=== PATIENT | female | born 1970 | race Caucasian/White ===

== ENCOUNTER → 2018-08-01 | Outpatient (CLI) | payer OTHER ==
[2018-08-01 08:38] LABS: ABSOLUTE EOSINOPHILS 0.1 thou/uL (0.0-0.7); ABSOLUTE LYMPHOCYTES 2.9 thou/uL (0.8-5.3); ABSOLUTE MONOCYTES 0.7 thou/uL (0.0-1.2); ABSOLUTE NEUTROPHILS 6.6 thou/uL (1.6-8.1); BASOPHILS 0.4 %; EOSINOPHILS 1.1 %; HEMATOCRIT 42.7 % (37.0-47.0); HEMOGLOBIN 13.8 gm/dL (12.0-15.0); LYMPHOCYTES 27.9 %; MCHC 32.3 g/dL (28.0-37.0); MCV 86.7 fL (80.0-100.0); MONOCYTES 6.9 %; MPV 8.8 fl. (7.2-11.1); NUCLEATED RBCS 0 /100WBC; PLATELET COUNT* 344 thou/uL (150-400); POLYS 63.7 %; RBC 4.92 mil/uL (4.20-5.00); RDW-CV 13.2 % (10.5-14.5); WBC 10.4 thou/uL (4.0-11.0)
[2018-08-01 08:47] LABS: ALBUMIN 3.4 g/dL (3.4-5.0); ALKALINE PHOSPHATASE 72 U/L (46-116); ANION GAP 9 mmol/L (7-16); BUN 16 mg/dL (7-18); CALCIUM 9.2 mg/dL (8.5-10.1); CHLORIDE 101 mmol/L (98-107); CHOLESTEROL 173 mg/dL (<200); CO2 29 mmol/L (21-32); GLUCOSE 109 mg/dL (70-99); HDL CHOLESTEROL 46 mg/dL (>40); LDL CHOLESTEROL 106 mg/dL (<100); POTASSIUM 3.9 mmol/L (3.5-5.1); SGOT 19 U/L (15-37); SGPT 41 U/L (30-65); SODIUM 139 mmol/L (136-145); TC:HDL 3.8 Ratio (Not establshd); TOTAL BILIRUBIN 0.6 mg/dL (<0.1-1.0); TRIGLYCERIDE 107 mg/dL (<150); VLDL 21 mg/dL (<40)
[2018-08-01 08:49] LABS: SERUM ASSESSMENT Clear
== END ==
LOC: M.LAB 04:11
PROVIDERS: Family Medicine
DX: I10 Essential (primary) hypertension (principal); M77.12 Lateral epicondylitis, left elbow; K21.9 Gastro-esophageal reflux disease without esophagitis; F41.9 Anxiety disorder, unspecified; F32.9 Major depressive disorder, single episode, unspecified

== ENCOUNTER → 2018-08-14 | Outpatient (CLI) | payer OTHER ==
--- NOTE | 2018-08-21 07:10 | SLEEP ---
[facility] [address] [place] [address] SLEEP STUDY REPORT Name: ALBAI LOGAN Room: [facility] Lloyd#: [id number] Admission: 08/14/18 Attend Phys: Guera Thornton Discharge: Date of : 70 Report #: [id number] THIS REPORT FOR: //name// CC: Beny Quezada This study has been reviewed in its entirety by a board certified sleep specialist DATE OF SERVICE: 08/16/2018 The patient is a 47-year-old who weighs 356 pounds with a BMI of 61.1. The patient underwent home sleep study performed at [facility]. Total recording time was 305 minutes. During the night study, the patient had 54 obstructive apneas, no central or mixed apneas and 162 hypopneas. The patient's apnea hypopnea index was 42.5 per hour and a supine index of 42.5 per hour as well. Oximetry study revealed an average oxygen saturation of 86% with a lowest of 53%, 241 minutes were spent in oxygen saturation less than 90% and another 86 minutes with saturation of less than 85% and another 35 minutes with saturation less than 80%. Mean heart rate was 97 beats per minute with a maximum of 116 beats per minute. IMPRESSION: 1. Severe sleep apnea-hypopnea syndrome with an AHI of 52.5 per hour. 2. Moderate to severe nocturnal hypoxia secondary to obstructive sleep apnea. RECOMMENDATIONS: 1. The patient should return to the sleep lab for in-lab titration study. 2. Once optimum CPAP pressure is achieved, then follow up in 4-6 weeks to assess compliance with CPAP and to document clinical improvement. 3. Weight loss is strongly advised. 4. Avoid [employer] depressants. 5. Cautioned regarding driving until symptoms of sleep apnea resolve with the use of CPAP. <ELECTRONICALLY SIGNED> By: Chuy Beatty MD 08/21/18 0710 [id number] [id number] Beatty MD /nt
== END ==
LOC: M.SLEEPLAB 07:00
DX: G47.33 Obstructive sleep apnea (adult) (pediatric) (principal); G47.34 Idiopathic sleep related nonobstructive alveolar hypoventilation; G47.8 Other sleep disorders; I10 Essential (primary) hypertension; F32.9 Major depressive disorder, single episode, unspecified; Z82.49 Family history of ischemic heart disease and other diseases of the circulatory system; Z80.0 Family history of malignant neoplasm of digestive organs; Z91.040 Latex allergy status

== ENCOUNTER → 2019-01-04 | Outpatient (CLI) | payer OTHER ==
[2019-01-04 10:18] LABS: ABSOLUTE BASOPHILS 0.1 thou/uL (0.0-0.2); ABSOLUTE EOSINOPHILS 0.1 thou/uL (0.0-0.7); ABSOLUTE LYMPHOCYTES 1.9 thou/uL (0.8-5.3); ABSOLUTE MONOCYTES 0.4 thou/uL (0.0-1.2); ABSOLUTE NEUTROPHILS 4.4 thou/uL (1.6-8.1); BASOPHILS 0.9 %; HEMATOCRIT 42.8 % (37.0-47.0); HEMOGLOBIN 14.2 gm/dL (12.0-15.0); MCH 28.9 pg (26.0-34.0); MCV 87.5 fL (80.0-100.0); MONOCYTES 5.5 %; MPV 8.8 fl. (7.2-11.1); NUCLEATED RBCS 0 /100WBC; PLATELET COUNT* 313 thou/uL (150-400); POLYS 63.6 %; RBC 4.89 mil/uL (4.20-5.00); RDW-CV 13.1 % (10.5-14.5); WBC 6.9 thou/uL (4.0-11.0)
[2019-01-04 10:29] LABS: ALBUMIN 3.2 g/dL (3.4-5.0); ALKALINE PHOSPHATASE 77 U/L (46-116); ANION GAP 5 mmol/L (7-16); BUN 14 mg/dL (7-18); CHLORIDE 104 mmol/L (98-107); CHOLESTEROL 181 mg/dL (<200); CO2 31 mmol/L (21-32); CREATININE 0.8 mg/dL (0.6-1.3); GLUCOSE 99 mg/dL (70-99); HDL CHOLESTEROL 41 mg/dL (>40); LDL CHOLESTEROL 114 mg/dL (<100); POTASSIUM 4.1 mmol/L (3.5-5.1); SERUM ASSESSMENT Clear; SGOT 23 U/L (15-37); SGPT 50 U/L (30-65); SODIUM 140 mmol/L (136-145); TC:HDL 4.4 Ratio (Not establshd); TOTAL BILIRUBIN 0.6 mg/dL (<0.1-1.0); TOTAL PROTEIN 7.6 g/dL (6.4-8.2); TRIGLYCERIDE 132 mg/dL (<150); VLDL 26 mg/dL (<40)
[2019-01-05 02:06] LABS: GLYCOHEMOGLOBIN (HGB A1C) 5.7 % (4.8-5.6)
== END ==
LOC: M.LAB 09:48
PROVIDERS: Family Medicine
DX: G47.30 Sleep apnea, unspecified (principal); I10 Essential (primary) hypertension; G47.8 Other sleep disorders; R73.9 Hyperglycemia, unspecified

== ENCOUNTER 2019-02-27 02:55 | Emergency (ER) | payer OTHER ==
[~2019-02-27] VITALS: Ht 162.6 cm; Wt 163.3 kg
[2019-02-27] MEDS ORDERED: CELEXA 20 MG TA20 MG PO (03:15)
[2019-02-27] MEDS ORDERED: LISINOPRIL (03:15)
[2019-02-27 03:55] VITALS: BP 138/90
== END 2019-02-27 03:55 | disposition home or self-care (01) ==
LOC: M.ERS 02:55
DX: S93.492A Sprain of other ligament of left ankle, initial encounter (principal); Z91.040 Latex allergy status; W01.0XXA Fall on same level from slipping, tripping and stumbling without subsequent striking against object, initial encounter; Y93.89 Activity, other specified; Y92.89 Other specified places as the place of occurrence of the external cause; Y99.8 Other external cause status

== ENCOUNTER → 2019-08-25 | Outpatient (CLI) | payer OTHER ==
[~2019-08-25] MED LIST: CELEXA 20 MG TA20 MG PO; LISINOPRIL
[2019-08-25 12:33] LABS: ABSOLUTE BASOPHILS 0.1 thou/uL (0.0-0.2); ABSOLUTE EOSINOPHILS 0.2 thou/uL (0.0-0.7); ABSOLUTE LYMPHOCYTES 2.8 thou/uL (0.8-5.3); ABSOLUTE MONOCYTES 0.5 thou/uL (0.0-1.2); ABSOLUTE NEUTROPHILS 5.1 thou/uL (1.6-8.1); BASOPHILS 1.1 %; HEMATOCRIT 42.5 % (37.0-47.0); HEMOGLOBIN 14.1 gm/dL (12.0-15.0); LYMPHOCYTES 31.9 %; MCH 28.6 pg (26.0-34.0); MCHC 33.2 g/dL (28.0-37.0); MCV 86.3 fL (80.0-100.0); MONOCYTES 5.8 %; MPV 8.6 fl. (7.2-11.1); NUCLEATED RBCS 0 /100WBC; PLATELET COUNT* 332 thou/uL (150-400); POLYS 59.2 %; RBC 4.92 mil/uL (4.20-5.00); RDW-CV 13.7 % (10.5-14.5); WBC 8.7 thou/uL (4.0-11.0)
[2019-08-25 12:47] LABS: ALBUMIN 3.5 g/dL (3.4-5.0); ALKALINE PHOSPHATASE 86 U/L (46-116); ANION GAP 6 mmol/L (7-16); BUN 11 mg/dL (7-18); CALCIUM 9.2 mg/dL (8.5-10.1); CHLORIDE 102 mmol/L (98-107); CHOLESTEROL 154 mg/dL (<200); CO2 31 mmol/L (21-32); CREATININE 1.1 mg/dL (0.6-1.3); GLUCOSE 95 mg/dL (70-99); HDL CHOLESTEROL 44 mg/dL (>40); LDL CHOLESTEROL 85 mg/dL (<100); POTASSIUM 4.1 mmol/L (3.5-5.1); SGOT 25 U/L (15-37); SGPT 37 U/L (30-65); SODIUM 139 mmol/L (136-145); TC:HDL 3.5 Ratio (Not establshd); TOTAL BILIRUBIN 0.6 mg/dL (<0.1-1.0); TOTAL PROTEIN 8.1 g/dL (6.4-8.2); TRIGLYCERIDE 127 mg/dL (<150); VLDL 25 mg/dL (<40)
[2019-08-25 12:48] LABS: SERUM ASSESSMENT Clear
[2019-08-26 02:07] LABS: GLYCOHEMOGLOBIN (HGB A1C) 5.6 % (4.8-5.6)
== END ==
LOC: M.LAB 12:10
PROVIDERS: Family Medicine
DX: I10 Essential (primary) hypertension (principal); F41.9 Anxiety disorder, unspecified; F32.9 Major depressive disorder, single episode, unspecified

== ENCOUNTER → 2019-08-30 | Outpatient (CLI) | payer OTHER ==
--- NOTE | 2019-08-30 09:59 | 2DMMODE ---
[place] [address] 2 D/M-MODE ECHOCARDIOGRAM Name: CHI CARROLL Room: [facility]#: [id number] Admission: 08/30/19 Attend Phys: Merrick Casillas MD Discharge: Date of : 70 Date of Service: 08/30/19 0957 Report #: [id number] THIS REPORT FOR: cc: Beny Quezada,Mario Reese MD [facility] ~ APPROVED REPORT Study performed: 08/30/2019 08:06:47 EXAM: Comprehensive 2D, Doppler, and color-flow Echocardiogram Patient Location: Out-Patient BSA: 2.53 HR: 98 bpm BP: 130/80 mmHg Other Information Study Quality: Fair Indications Palpitations 2D Dimensions IVSd: 11.21 (7-11mm) LVOT Diam: 20.38 (18-24mm) LVDd: 45.99 mm PWd: 10.92 (7-11mm) Ascending Ao: 33.42 (22-36mm) LVDs: 28.25 (25-40mm) Aortic Root: 25.85 mm Volumes Left Atrial Volume (Systole) LA ESV Index: 8.70 mL/m2 Aortic Valve AoV Peak Luis.: 1.26 m/s AO Peak Gr.: 6.34 mmHg LVOT Max P.46 mmHg AO Mean Gr.: 3.87 mmHg LVOT Mean P.71 mmHg LVOT Max V: 0.93 m/s AO V2 VTI: 21.57 cm LVOT Mean V: 0.60 m/s SCOTU (VTI): 2.46 cm2 LVOT V1 VTI: 16.26 cm Mitral Valve E/A Ratio: 0.92 [place] [address] 2 D/M-MODE ECHOCARDIOGRAM Name: GLENCHI Room: [facility]#: [id number] Admission: 08/30/19 Attend Phys: Merrick Casillas MD Discharge: Date of : 70 Date of Service: 08/30/19 0957 Report #: [id number] MV Decel. Time: 223.77 ms MV E Max Luis.: 0.63 m/s MV PHT: 64.89 ms MVA (PHT): 3.39 cm2 TDI E/Lateral E': 4.50 E/Medial E': 7.00 Medial E' Luis.: 0.09 m/s Lateral E' Luis.: 0.14 m/s Pulmonary Valve PV Peak Luis.: 0.82 m/s PV Peak Gr.: 2.68 mmHg Left Ventricle The left ventricle is normal size. There is normal LV segmental wall motion. There is normal left ventricular wall thickness. Left ventricular systolic function is normal. LVEF is 60-65%. Transmitral Doppler flow pattern suggests impaired LV relaxation. Right Ventricle The right ventricle is normal size. The right ventricular systolic function is normal. Atria The left atrium size is normal. The right atrium size is normal. Aortic Valve The aortic valve is normal in structure. No aortic regurgitation is present. There is no aortic valvular stenosis. Mitral Valve The mitral valve is normal in structure. There is no mitral valve regurgitation noted. No evidence of mitral valve stenosis. Tricuspid Valve The tricuspid valve is normal in structure. There is no tricuspid valve regurgitation noted. Pulmonic Valve The pulmonary valve is normal in structure. There is no pulmonic valvular regurgitation. Great Vessels The aortic root is normal in size. IVC [place] [address] 2 D/M-MODE ECHOCARDIOGRAM Name: CHI CARROLL Room: [facility]#: [id number] Admission: 08/30/19 Attend Phys: Merrick Casillas MD Discharge: Date of : 70 Date of Service: 08/30/19 0957 Report #: [id number] Pericardium There is no pericardial effusion. <Conclusion> The left ventricle is normal size. There is normal left ventricular wall thickness. Left ventricular systolic function is normal. LVEF is 60-65%. Transmitral Doppler flow pattern suggests impaired LV relaxation. <ELECTRONICALLY SIGNED> By: Mario Romero MD, FACC 08/30/1957 6 6 Mario Romero MD, FACC /INF
== END ==
LOC: M.CRD 07:15
DX: R00.2 Palpitations (principal)

== ENCOUNTER → 2020-01-11 | Outpatient (CLI) | payer OTHER | LOC: M.MRI 08:02 | PROVIDERS: ATTEND Family Medicine | DX: S83.241A Other tear of medial meniscus, current injury, right knee, initial encounter (principal); S83.221A Peripheral tear of medial meniscus, current injury, right knee, initial encounter; M25.761 Osteophyte, right knee; M25.462 Effusion, left knee; M71.21 Synovial cyst of popliteal space [Baker], right knee; M94.261 Chondromalacia, right knee; X58.XXXA Exposure to other specified factors, initial encounter; Y93.89 Activity, other specified; Y92.89 Other specified places as the place of occurrence of the external cause; Y99.8 Other external cause status ==

== ENCOUNTER → 2020-01-24 | Outpatient (CLI) | payer OTHER ==
[~2020-01-24] MED LIST changes: +ATORVASTATIN CA10 MG PO; +BUPROPION XL300 MG PO; +CITALOPRAM HBR40 MG PO; +LISINOPRIL20 MG PO; +NEXIUM 24HR20 M2 PO; +NORCO 5-325 TA1 EAC2 PO
== END ==
LOC: M.LAB 15:09
PROVIDERS: ATTEND Orthopaedic Surgery
DX: Z01.812 Encounter for preprocedural laboratory examination (principal); Z20.828 Contact with and (suspected) exposure to other viral communicable diseases

== ENCOUNTER 2020-01-27 11:05 | Observation (INO) | payer OTHER ==
[~2020-01-27] VITALS: Ht 162.6 cm; Wt 178.7 kg
[~2020-01-27 11:05] MED LIST changes: -NORCO 5-325 TA1 EAC2 PO
[2020-01-27 11:58] LABS: ABSOLUTE BASOPHILS 0.1 thou/uL (0.0-0.2); ABSOLUTE EOSINOPHILS 0.3 thou/uL (0.0-0.7); ABSOLUTE LYMPHOCYTES 2.1 thou/uL (0.8-5.3); ABSOLUTE MONOCYTES 0.5 thou/uL (0.0-1.2); ABSOLUTE NEUTROPHILS 5.2 thou/uL (1.6-8.1); BASOPHILS 1.1 %; EOSINOPHILS 3.4 %; HEMATOCRIT 41.6 % (37.0-47.0); HEMOGLOBIN 13.5 gm/dL (12.0-15.0); LYMPHOCYTES 25.8 %; MCH 28.3 pg (26.0-34.0); MCHC 32.4 g/dL (28.0-37.0); MCV 87.3 fL (80.0-100.0); MONOCYTES 5.8 %; MPV 8.2 fl. (7.2-11.1); NUCLEATED RBCS 0 /100WBC; PLATELET COUNT* 290 thou/uL (150-400); POLYS 63.9 %; RBC 4.77 mil/uL (4.20-5.00); RDW-CV 14.2 % (10.5-14.5); WBC 8.1 thou/uL (4.0-11.0)
[2020-01-27 12:28] LABS: ALBUMIN 3.6 g/dL (3.4-5.0); ALKALINE PHOSPHATASE 85 U/L (46-116); ANION GAP 7 mmol/L (7-16); BUN 12 mg/dL (7-18); CALCIUM 9.3 mg/dL (8.5-10.1); CHLORIDE 104 mmol/L (98-107); CHOLESTEROL 151 mg/dL (<200); CO2 30 mmol/L (21-32); CREATININE 0.9 mg/dL (0.6-1.3); GLUCOSE 86 mg/dL (70-99); HDL CHOLESTEROL 46 mg/dL (>40); LDL CHOLESTEROL 83 mg/dL (<100); POTASSIUM 3.9 mmol/L (3.5-5.1); SERUM ASSESSMENT Clear; SGOT 21 U/L (15-37); SGPT 41 U/L (30-65); SODIUM 141 mmol/L (136-145); TC:HDL 3.3 Ratio (Not establshd); TOTAL BILIRUBIN 0.5 mg/dL (<0.1-1.0); TOTAL PROTEIN 7.8 g/dL (6.4-8.2); TRIGLYCERIDE 111 mg/dL (<150); VLDL 22 mg/dL (<40)
--- NOTE | 2020-01-27 13:08 | EKG ---
[place] [address] ELECTROCARDIOGRAM REPORT Name: CHI CARROLL Room: [facility]#: [id number] Admission: 01/27/20 Attend Phys: Geovanni aLn, Discharge: Date of : 70 Date of Service: 01/27/20 1207 Report #: [id number] THIS REPORT FOR: //name// [facility] Test Date: 2020-01-27 Test Time: 12:07:21 Pat Name: CHI CARROLL Department: Room: Gender: F Urban Designer: : 1970 Requested By: Geovanni Lan Order Number: [id number] Gudelia MD: Merrick Casillas Measurements Intervals [place] Rate: 84 P: 41 CT: 148 QRS: 56 QRSD: 98 T: 40 QT: 392 QTc: 464 Interpretive Statements Sinus rhythm Consider right atrial enlargement Baseline wander in lead(s) V3 No previous ECG available for comparison Electronically Signed On 01-27-2020 13:08:18 CDT by Merrick Casillas [email or web address] <ELECTRONICALLY SIGNED> By: Merrick Casillas MD, [facility] 01/27/20 1308 06 06 Merrick Casillas MD, FAC /EPI
[2020-01-27] MEDS ORDERED: NORCO 5-325 TA1 EAC2 PO (16:34)
[2020-01-27 19:50] VITALS: BP 137/76
[2020-01-28 02:08] LABS: GLYCOHEMOGLOBIN (HGB A1C) 5.6 % (4.8-5.6)
--- NOTE | 2020-01-28 02:37 | NUR ---
PT ADMITTED TO ROOM 208 AT 1950 FOR OBSERVATION POST RIGHT KNEE ARTHROSCOPY. PT ABLE TO STAND AND TRANSFER FROM WHEELCHAIR TO BED WITH STANDBY ASSIST. PT GIVEN PRN NORCO WITH HS MEDS. CALL LIGHT IN REACH, PT DEMONSTRTES PROPER USE.
[2020-01-28 04:00] VITALS: BP 145/84
[2020-01-28 08:00] VITALS: BP 153/96
[2020-01-28 10:40] VITALS: BP 145/84
--- NOTE | 2020-01-28 11:03 | OP ---
[facility] [place] [address] [place] [address] OPERATIVE REPORT Name: CHI CARROLL Room: [address] [place]#: [id number] Admission: 01/27/20 Attend Phys: Guera Ritter Discharge: Date of : 70 Report #: [id number] THIS REPORT FOR: //name// cc: Beny Quezada Vincent R. DO ~ CC: Geovanni Cornejo DATE OF SERVICE: 01/27/2020 PREOPERATIVE DIAGNOSIS: Right knee medial meniscus tear. POSTOPERATIVE DIAGNOSES: 1. Right knee medial meniscus tear. 2. Grade 3 chondromalacia, patellofemoral groove. PROCEDURES PERFORMED: 1. Right knee arthroscopic surgery with partial medial meniscectomy. 2. Abrasion chondroplasty, patellofemoral groove, down to bleeding bone. SURGEON: Geovanni Lan II, DO FRICKERTRON CHECKER: ROWAN [place]. ANESTHESIA: Per operative record. ESTIMATED BLOOD LOSS: Minimal. ANTIBIOTICS: Per operative record. DRAINS: None. COMPLICATIONS: None. CONDITION OF THE PATIENT: Stable to recovery room. DESCRIPTION OF OPERATIVE PROCEDURE: The patient was taken to the operative suite, placed supine on the operating table, given appropriate anesthesia. The patient's affected lower extremity sterilely prepped and draped with well-padded knee arthroscopic hunter. Surgery began by midline portal incision. The arthroscope was advanced in the joint. There was found to be grade 3 chondromalacia, patellofemoral groove. Utilizing a shaver, an abrasion chondroplasty was performed on the bleeding bone and then smoothed using Coblation wand. The medial meniscus was shown to have a tear to the medial margin extending around to the posterior horn. [place] [address] OPERATIVE REPORT Name: CHI CARROLL Room: [address] [place]#: [id number] Admission: 01/27/20 Attend Phys: Guera Ritter Discharge: Date of : 70 Report #: [id number] performed utilizing baskets and shaver to resect the torn flap along the medial meniscus and then smoothed using Coblation wand. There was a small focus of osteochondral defect in this region, which was smoothed utilizing Coblation wand. Lateral meniscus was probed and shown to be intact. ACL and PCL were intact. Final irrigation was performed of the knee. It was drained of arthroscopic fluid, closed with 4-0 nylon in simple fashion. Dermabond and sterile dressing applied. The patient transported to recovery room in stable condition. Counts were correct throughout the procedure. <ELECTRONICALLY SIGNED> By: Geovanni Lan II, DO 01/28/20 1103 2056 [id number] Lan II, DO /nt
== END 2020-01-28 10:30 | disposition home or self-care (01) ==
LOC: M.SUR 11:05 → M.3W 20:04 → M.TBA 20:04 → M.3W 20:11
PROVIDERS: Orthopaedic Surgery; ADMIT Internal Medicine; ATTEND Internal Medicine
DX: S83.241A Other tear of medial meniscus, current injury, right knee, initial encounter (principal); M22.41 Chondromalacia patellae, right knee; I10 Essential (primary) hypertension; E78.00 Pure hypercholesterolemia, unspecified; E11.9 Type 2 diabetes mellitus without complications; R09.02 Hypoxemia; G47.33 Obstructive sleep apnea (adult) (pediatric); Z79.899 Other long term (current) drug therapy; X58.XXXA Exposure to other specified factors, initial encounter; Y93.89 Activity, other specified; Y92.89 Other specified places as the place of occurrence of the external cause

== ENCOUNTER → 2020-07-06 | Outpatient (CLI) | payer OTHER ==
[~2020-07-06] MED LIST changes: +NORCO 5-325 TA1 EAC2 PO
[2020-07-06 14:12] LABS: ABSOLUTE BASOPHILS 0.1 thou/uL (0.0-0.2); ABSOLUTE EOSINOPHILS 0.2 thou/uL (0.0-0.7); ABSOLUTE LYMPHOCYTES 2.4 thou/uL (0.8-5.3); ABSOLUTE MONOCYTES 0.5 thou/uL (0.0-1.2); ABSOLUTE NEUTROPHILS 5.2 thou/uL (1.6-8.1); BASOPHILS 0.9 %; EOSINOPHILS 2.5 %; LYMPHOCYTES 28.2 %; MCH 27.3 pg (26.0-34.0); MCHC 31.7 g/dL (28.0-37.0); MCV 86.3 fL (80.0-100.0); MONOCYTES 5.5 %; MPV 8.1 fl. (7.2-11.1); NUCLEATED RBCS 0 /100WBC; PLATELET COUNT* 331 thou/uL (150-400); POLYS 62.9 %; RBC 4.76 mil/uL (4.20-5.00); RDW-CV 14.1 % (10.5-14.5); WBC 8.3 thou/uL (4.0-11.0)
[2020-07-06 14:24] LABS: ALBUMIN 3.1 g/dL (3.4-5.0); ALKALINE PHOSPHATASE 98 U/L (46-116); ANION GAP 6 mmol/L (7-16); BUN 14 mg/dL (7-18); CALCIUM 9.3 mg/dL (8.5-10.1); CHLORIDE 103 mmol/L (98-107); CHOLESTEROL 150 mg/dL (<200); CO2 31 mmol/L (21-32); CREATININE 0.9 mg/dL (0.6-1.3); GLUCOSE 95 mg/dL (70-99); HDL CHOLESTEROL 44 mg/dL (>40); LDL CHOLESTEROL 81 mg/dL (<100); POTASSIUM 4.3 mmol/L (3.5-5.1); SERUM ASSESSMENT Clear; SGOT 17 U/L (15-37); SGPT 34 U/L (30-65); SODIUM 140 mmol/L (136-145); TC:HDL 3.4 Ratio (Not establshd); TOTAL BILIRUBIN 0.4 mg/dL (<0.1-1.0); TOTAL PROTEIN 7.8 g/dL (6.4-8.2); TRIGLYCERIDE 128 mg/dL (<150); VLDL 26 mg/dL (<40)
[2020-07-06 23:06] LABS: GLYCOHEMOGLOBIN (HGB A1C) 5.7 % (4.8-5.6)
== END ==
LOC: M.LAB 13:50
PROVIDERS: ATTEND Family Medicine
DX: E78.2 Mixed hyperlipidemia (principal); I10 Essential (primary) hypertension; F32.9 Major depressive disorder, single episode, unspecified; F41.9 Anxiety disorder, unspecified

== ENCOUNTER → 2020-08-04 | Outpatient (CLI) | payer OTHER | LOC: M.MRI 09:02 | PROVIDERS: ATTEND Registered Nurse Diabetes Educator | DX: M47.816 Spondylosis without myelopathy or radiculopathy, lumbar region (principal) ==

== ENCOUNTER → 2020-08-31 | Outpatient (CLI) | payer OTHER ==
[2020-08-31 14:01] LABS: ABSOLUTE BASOPHILS 0.1 thou/uL (0.0-0.2); ABSOLUTE EOSINOPHILS 0.2 thou/uL (0.0-0.7); ABSOLUTE LYMPHOCYTES 2.5 thou/uL (0.8-5.3); ABSOLUTE MONOCYTES 0.6 thou/uL (0.0-1.2); ABSOLUTE NEUTROPHILS 5.7 thou/uL (1.6-8.1); BASOPHILS 0.6 %; EOSINOPHILS 2.3 %; HEMATOCRIT 41.7 % (37.0-47.0); HEMOGLOBIN 13.3 gm/dL (12.0-15.0); LYMPHOCYTES 27.4 %; MCH 27.5 pg (26.0-34.0); MCHC 31.9 g/dL (28.0-37.0); MCV 86.3 fL (80.0-100.0); MPV 8.1 fl. (7.2-11.1); NUCLEATED RBCS 0 /100WBC; PLATELET COUNT* 347 thou/uL (150-400); POLYS 62.7 %; RBC 4.84 mil/uL (4.20-5.00); RDW-CV 14.4 % (10.5-14.5); WBC 9.1 thou/uL (4.0-11.0)
[2020-08-31 14:21] LABS: ALBUMIN 3.3 g/dL (3.4-5.0); CALCIUM 9.3 mg/dL (8.5-10.1); CREATININE 0.8 mg/dL (0.6-1.3); POTASSIUM 4.5 mmol/L (3.5-5.1); TOTAL BILIRUBIN 0.3 mg/dL (<0.1-1.0)
== END ==
LOC: M.LAB 13:47
PROVIDERS: ATTEND Nurse Practitioner Family
DX: R32 Unspecified urinary incontinence (principal); M54.5 Low back pain; R60.0 Localized edema